=== PATIENT | female | born 1955 | race Caucasian/White ===

== ENCOUNTER → 2018-12-10 | Outpatient (CLI) | payer OTHER ==
[~2018-12-10] MED LIST: ABAT250V; Excedrin Extra1 EACH PO; Loratadine10 MG PO; PROAIR RESPICL90 MCG INH
[2018-12-14 15:07] LABS: HPV 16 Negative (Negative); HPV 18 Negative (Negative); HPV OTHER HR TYPES Negative (Negative)
== END | disposition home or self-care (01) ==
LOC: LAB SHORT 16:00 → LAB 16:00
PROVIDERS: Family Medicine
DX: Z12.4 Encounter for screening for malignant neoplasm of cervix (principal)
CPT/HCPCS: 87624; G0123

== ENCOUNTER 2018-12-31 09:37 | Day surgery (SDC) | payer OTHER ==
[~2018-12-31] VITALS: Ht 157.5 cm; Wt 60.5 kg
[~2018-12-31 09:37] MED LIST changes: -ABAT250V; -Excedrin Extra1 EACH PO
[2018-12-31] MEDS ORDERED: Excedrin Extra1 EACH PO (10:12)
[2018-12-31] MEDS ORDERED: ABAT250V (10:12)
== END 2018-12-31 12:25 | disposition home or self-care (01) ==
LOC: ORSCSDS 09:37
PROVIDERS: Student in an Organized Health Care Education/Training Program
PROC: 0DBL8ZX Excision of Transverse Colon, Via Natural or Artificial Opening Endoscopic, Diagnostic (ICD-10-PCS; principal; 2018-12-31 11:15)
DX: Z12.11 Encounter for screening for malignant neoplasm of colon (principal); D12.3 Benign neoplasm of transverse colon; L85.9 Epidermal thickening, unspecified; K62.89 Other specified diseases of anus and rectum; K57.30 Diverticulosis of large intestine without perforation or abscess without bleeding; K64.8 Other hemorrhoids; Z79.899 Other long term (current) drug therapy
CPT/HCPCS: 88305; J2704; J7120

== ENCOUNTER → 2021-12-17 | Outpatient (CLI) | payer MEDICARE, OTHER ==
[~2021-12-17] MED LIST changes: +ABAT250V; +Excedrin Extra1 EACH PO
== END ==
LOC: LAB SHORT 12:13 → PLD 12:13
DX: L57.0 Actinic keratosis (principal); D48.5 Neoplasm of uncertain behavior of skin
CPT/HCPCS: 88305